=== PATIENT | male | born 1945 | race Caucasian/White ===

== ENCOUNTER 2024-05-19 10:23 | Emergency (ER) | payer BC ==
[2024-05-19] MEDS ORDERED: predniSONE 20 MG TAB ONE (11:27)
[2024-05-19] MEDS ORDERED: Ketorolac Tromethamine 30 MG (1 mL) VIAL ONE (11:27)
[2024-05-19] MEDS ORDERED: Methocarbamol 500 MG TAB ONE (11:31)
== END 2024-05-19 11:36 | disposition home or self-care (01) ==
LOC: ERS 10:23
DX: M54.32 Sciatica, left side (principal); I10 Essential (primary) hypertension; E78.5 Hyperlipidemia, unspecified; Z79.899 Other long term (current) drug therapy
CPT/HCPCS: 96372; 99283; J1885; J7512